=== PATIENT | female | born 1950 | race African-American/Black ===

== ENCOUNTER 2017-04-14 14:01 | Inpatient (IN) ==
[2017-04-14 16:09] LABS: Basophils # 0.1 10*3/uL (0.0-0.2); Basophils % 0.5 % (0.0-0.8); Eosinophils # 0.4 10*3/uL (0.0-0.87); Eosinophils % 3.2 % (0.00-10.9); Hematocrit 37.3 VOL% (35.7-47.0); Hemoglobin 12.3 GM/DL (12.0-16.0); Immature Granulocytes % 0.6 %; Immature Granulocytes Absolute 0.07 #; Lymphocytes # 1.7 10*3/uL (1.4-4.0); Lymphocytes % 13.1 % (21.3-54.2); Mean Corpuscular Hemoglobin 29 PG (27-34); Mean Corpuscular Volume 87.6 FL (87-102); Mean Platelet Volume 11.8 FL (9.6-12.0); Monocytes # 0.9 10*3/uL (0.11-0.8); Monocytes % 7.2 % (1.7-12.7); Neutrophils # 9.6 10*3/uL (1.4-7.4); Neutrophils % 75.4 % (38.7-73.9); Platelet Count 243 T/CUMM (130-400); Red Blood Count 4.26 MC/CUMM (3.8-5.5); Red Cell Distribution Width 16.7 % (9.3-17.3); White Blood Count 12.7 T/CUMM (4-12)
[2017-04-14 16:34] LABS: Alanine Aminotransferase 40 U/L (13-56); Alkaline Phosphatase 208 U/L (45-117); Aspartate Amino Transferase 43 U/L (0-37); Bilirubin,Total < 0.39 MG/DL (0.2-1.0); Blood Urea Nitrogen 22 MG/DL (7-18); Calcium 8.9 MG/DL (8.5-10.1); Glucose 151 MG/DL (74-106); Magnesium 2.1 MG/DL (1.8-2.4); Osmolality,Calculated 288.1 MOS/KG (273-304); Potassium 3.1 MMOL/L (3.5-5.1); Sodium 142 MMOL/L (136-145); Total Protein 7.2 G/DL (6.4-8.3)
[2017-04-14] MEDS ORDERED: NITROGLYCERIN SL 0.4 MG TABLET SL PRN (19:58)
[2017-04-14] MEDS ORDERED: ONDANSETRON 4 MG/2 ML VIAL IV PRN (19:58)
[2017-04-14] MEDS ORDERED: ACETAMINOPHEN 325 MG TABLET PO PRN (19:58)
[2017-04-14 20:12] LABS: Hematocrit 33.7 VOL% (35.7-47.0); Hemoglobin 11.1 GM/DL (12.0-16.0)
[2017-04-14] MEDS: risperiDONE 1 MG TABLET PO SCH (20:34)
[2017-04-14] MEDS: ASCORBIC ACID 500 MG TABLET PO SCH (20:34)
[2017-04-14] MEDS: DONEPEZIL 5 MG TABLET PO SCH (20:34)
[2017-04-15 05:59] LABS: Basophils # 0.1 10*3/uL (0.0-0.2); Basophils % 0.4 % (0.0-0.8); Eosinophils # 0.4 10*3/uL (0.0-0.87); Eosinophils % 3.7 % (0.00-10.9); Hematocrit 34.1 VOL% (35.7-47.0); Immature Granulocytes % 0.5 %; Immature Granulocytes Absolute 0.06 #; Lymphocytes # 1.9 10*3/uL (1.4-4.0); Lymphocytes % 16.5 % (21.3-54.2); Mean Corpuscular HGB Conc 32.3 GM/DL (32-36); Mean Corpuscular Hemoglobin 29 PG (27-34); Mean Corpuscular Volume 88.3 FL (87-102); Mean Platelet Volume 10.2 FL (9.6-12.0); Monocytes % 8.5 % (1.7-12.7); Neutrophils # 8.3 10*3/uL (1.4-7.4); Neutrophils % 70.4 % (38.7-73.9); Platelet Count 223 T/CUMM (130-400); Red Blood Count 3.86 MC/CUMM (3.8-5.5); Red Cell Distribution Width 16.7 % (9.3-17.3); White Blood Count 11.8 T/CUMM (4-12)
[2017-04-15 06:33] LABS: Albumin 2.8 G/DL (3.4-5.0); Bilirubin,Total 0.7 MG/DL (0.2-1.0); Calcium 8.9 MG/DL (8.5-10.1); Osmolality,Calculated 288.1 MOS/KG (273-304); Potassium 3.1 MMOL/L (3.5-5.1); Total Protein 6.6 G/DL (6.4-8.3)
[2017-04-15] MEDS ORDERED: PANTOPRAZOLE 40 MG VIAL IV SCH (09:00)
[2017-04-15] MEDS: ASCORBIC ACID 500 MG TABLET PO SCH ×2 (10:05→20:59)
[2017-04-15] MEDS: MULTIVITAMIN (BEROCCA) TABLET PO SCH (10:05)
[2017-04-15] MEDS: risperiDONE 1 MG TABLET PO SCH ×2 (10:05→20:57)
[2017-04-15] MEDS: PANTOPRAZOLE 40 MG TABLET PO SCH (10:05)
[2017-04-15] MEDS ORDERED: POTASSIUM CHLORIDE 20 MEQ TABLET PO ONE (11:30)
[2017-04-15 12:04] LABS: Hematocrit 36.4 VOL% (35.7-47.0); Hemoglobin 11.9 GM/DL (12.0-16.0)
[2017-04-15] MEDS ORDERED: HEPARIN 10,000 UNIT/10 ML VIAL IV SCH (15:00)
[2017-04-15] MEDS: ISOSORBIDE MONONITRATE 30 MG TABLET PO SCH (20:59)
[2017-04-15] MEDS: DONEPEZIL 5 MG TABLET PO SCH (20:59)
[2017-04-16 05:48] LABS: Basophils % 0.3 % (0.0-0.8); Eosinophils # 0.4 10*3/uL (0.0-0.87); Eosinophils % 2.9 % (0.00-10.9); Hematocrit 31.7 VOL% (35.7-47.0); Hemoglobin 10.2 GM/DL (12.0-16.0); Immature Granulocytes % 0.7 %; Immature Granulocytes Absolute 0.08 #; Lymphocytes # 1.6 10*3/uL (1.4-4.0); Lymphocytes % 12.6 % (21.3-54.2); Mean Corpuscular HGB Conc 32.2 GM/DL (32-36); Mean Corpuscular Hemoglobin 28 PG (27-34); Mean Corpuscular Volume 88.1 FL (87-102); Mean Platelet Volume 10.5 FL (9.6-12.0); Monocytes # 1.2 10*3/uL (0.11-0.8); Monocytes % 9.8 % (1.7-12.7); Neutrophils % 73.7 % (38.7-73.9); Platelet Count 202 T/CUMM (130-400); Red Cell Distribution Width 16.8 % (9.3-17.3); White Blood Count 12.3 T/CUMM (4-12)
[2017-04-16 06:16] LABS: Calcium 8.5 MG/DL (8.5-10.1); Osmolality,Calculated 283.4 MOS/KG (273-304); Potassium 3.6 MMOL/L (3.5-5.1)
[2017-04-16] MEDS ORDERED: ETOMIDATE 20 MG/10 ML VIAL IV ONE (12:00)
[2017-04-16] MEDS ORDERED: PROPOFOL 200 MG/20 ML VIAL IV ONE (12:00)
[2017-04-16] MEDS: risperiDONE 1 MG TABLET PO SCH ×2 (12:47→20:53)
[2017-04-16] MEDS: ASCORBIC ACID 500 MG TABLET PO SCH ×2 (12:47→20:53)
[2017-04-16] MEDS: MULTIVITAMIN (BEROCCA) TABLET PO SCH (12:47)
[2017-04-16] MEDS: PANTOPRAZOLE 40 MG TABLET PO SCH (12:47)
[2017-04-16] MEDS: ZINC OXIDE PASTE 113 GM TUBE TOP SCH ×2 (17:01→21:45)
[2017-04-16] MEDS: ISOSORBIDE MONONITRATE 30 MG TABLET PO SCH (20:53)
[2017-04-16] MEDS: DONEPEZIL 5 MG TABLET PO SCH (20:53)
[2017-04-17] MEDS: ASCORBIC ACID 500 MG TABLET PO SCH (08:17)
[2017-04-17] MEDS: risperiDONE 1 MG TABLET PO SCH (08:17)
[2017-04-17] MEDS: ZINC OXIDE PASTE 113 GM TUBE TOP SCH (08:17)
[2017-04-17] MEDS: MULTIVITAMIN (BEROCCA) TABLET PO SCH (08:17)
[2017-04-17] MEDS: PANTOPRAZOLE 40 MG TABLET PO SCH (08:17)
[2017-04-17 12:23] VITALS: BP 124/67
[2017-04-17 13:26] LABS: Basophils % 0.4 % (0.0-0.8); Eosinophils # 0.5 10*3/uL (0.0-0.87); Eosinophils % 4.6 % (0.00-10.9); Hematocrit 32.1 VOL% (35.7-47.0); Hemoglobin 10.5 GM/DL (12.0-16.0); Immature Granulocytes % 0.6 %; Immature Granulocytes Absolute 0.06 #; Lymphocytes # 1.8 10*3/uL (1.4-4.0); Lymphocytes % 17.3 % (21.3-54.2); Mean Corpuscular HGB Conc 32.7 GM/DL (32-36); Mean Corpuscular Hemoglobin 29 PG (27-34); Mean Corpuscular Volume 87.9 FL (87-102); Mean Platelet Volume 10.5 FL (9.6-12.0); Monocytes # 0.9 10*3/uL (0.11-0.8); Monocytes % 8.4 % (1.7-12.7); Neutrophils # 6.9 10*3/uL (1.4-7.4); Neutrophils % 68.7 % (38.7-73.9); Platelet Count 196 T/CUMM (130-400); Red Blood Count 3.65 MC/CUMM (3.8-5.5); Red Cell Distribution Width 16.4 % (9.3-17.3); White Blood Count 10.1 T/CUMM (4-12)
[2017-04-17 13:52] LABS: Calcium 8.1 MG/DL (8.5-10.1); Osmolality,Calculated 269.1 MOS/KG (273-304); Potassium 3.2 MMOL/L (3.5-5.1)
== END 2017-04-17 15:37 | disposition home health service (06) | DRG 380 ==
LOC: EDUNIT# → EDBD → N.ED 14:01 → SUATTDRO 16:56 → N.EDINP 16:56 → N.2E 19:05
PROVIDERS: ADMIT Internal Medicine; ATTEND Hospitalist

== ENCOUNTER 2018-04-12 10:00 | Inpatient (IN) ==
[2018-04-12] MEDS ORDERED: SODIUM CHLORIDE 0.9% 500 ML IV STA (10:22)
[2018-04-12] MEDS ORDERED: GENTAMICIN INJ 80 MG in SODIUM CHLORIDE 0.9% 100 ML IV STA (10:22)
[2018-04-12] MEDS ORDERED: VANCOMYCIN INJ 1,000 MG in SODIUM CHLORIDE 0.9% 250 ML IV STA (10:22)
[2018-04-12] MEDS ORDERED: PROTAMINE SULFATE 50 MG/5 ML VIAL IV ONE (10:44)
[2018-04-12] MEDS ORDERED: NOREPINEPHRINE 4 MG/4 ML VIAL IV ONE (10:45)
[2018-04-12] MEDS ORDERED: SODIUM CHLORIDE 0.9% 1,000 ML IV PRN ×3 (10:49→14:56)
[2018-04-12] MEDS: NOREPINEPHRINE 8 MG in SODIUM CHLORIDE 0.9% 242 ML IV PRN ×3 (10:50→20:42)
[2018-04-12] MEDS ORDERED: GENTAMICIN 80 MG/2 ML VIAL ONE (11:08)
[2018-04-12] MEDS ORDERED: ACETAMINOPHEN 325 MG TABLET PO PRN (11:34)
[2018-04-12] MEDS ORDERED: ONDANSETRON 4 MG/2 ML VIAL IV PRN (11:34)
[2018-04-12] MEDS ORDERED: ALBUTEROL 2.5 MG/3 ML NEB RESP TX PRN (11:34)
[2018-04-12] MEDS ORDERED: LACTULOSE 20 GM/30 ML UDCUP PO PRN (11:34)
[2018-04-12] MEDS ORDERED: GLUCAGON 1 MG VIAL IM PRN (11:41)
[2018-04-12] MEDS ORDERED: DEXTROSE 50% 25 GM/50 ML VIAL IV PRN (11:41)
[2018-04-12 11:58] LABS: Basophils % 0.2 % (0.0-0.8); Eosinophils % 0.1 % (0.00-10.9); Hematocrit 20.4 VOL% (35.7-47.0); Immature Granulocytes % 1.5 %; Immature Granulocytes Absolute 0.27 #; Lymphocytes # 1.9 10*3/uL (1.4-4.0); Mean Corpuscular HGB Conc 30.4 GM/DL (32-36); Mean Corpuscular Hemoglobin 25 PG (27-34); Mean Corpuscular Volume 83.3 FL (87-102); Mean Platelet Volume 11.5 FL (9.6-12.0); Monocytes # 1.2 10*3/uL (0.11-0.8); Monocytes % 6.7 % (1.7-12.7); Neutrophils # 15.1 10*3/uL (1.4-7.4); Neutrophils % 81.5 % (38.7-73.9); Platelet Count 186 T/CUMM (130-400); Red Blood Count 2.45 MC/CUMM (3.8-5.5); Red Cell Distribution Width 18.7 % (9.3-17.3); White Blood Count 18.5 T/CUMM (4-12)
[2018-04-12 12:03] LABS: Hemoglobin 6.2 GM/DL (12.0-16.0)
[2018-04-12 12:06] LABS: INR 1.2; PT Patient Result 12.8 SECS; Partial Thromboplastin Time 27.4 SECS (0-40)
[2018-04-12 12:18] LABS: Ammonia 29 UMOL/L (11-32)
[2018-04-12 12:21] LABS: Lactic Acid 6.4 MMOL/L (0.4-2.0)
[2018-04-12 12:33] LABS: Alanine Aminotransferase 10 U/L (13-56); Albumin 1.8 G/DL (3.4-5.0); Alkaline Phosphatase 56 U/L (45-117); Aspartate Amino Transferase 17 U/L (0-37); Blood Urea Nitrogen 68 MG/DL (7-18); Glucose 223 MG/DL (74-106); Potassium 4.1 MMOL/L (3.5-5.1); Sodium 143 MMOL/L (136-145); Total Protein 5.1 G/DL (6.4-8.3)
[2018-04-12 12:37] LABS: Allen Test Positive; Pt O2 Delivery Device Ventilator
[2018-04-12 12:38] LABS: ABG Base Excess 0.3 MMOL/L (-2.5-2.5); ABG HCO3 24.7 MMOL/L (20-26); ABG TCO2 20.9 MMOL/L (23-27)
[2018-04-12 12:40] LABS: ABG PCO2 20.4 MM HG (35-48); ABG PH 7.629 (7.35-7.45)
[2018-04-12] MEDS ORDERED: INSULIN LISPRO 100 UNIT/ML SUBCUT SCH (14:00)
[2018-04-12] MEDS ORDERED: ETOMIDATE 20 MG/10 ML VIAL IV ONE (14:12)
[2018-04-12] MEDS ORDERED: ROCURONIUM 100 MG/10 ML VIAL IV ONE (14:12)
[2018-04-12] MEDS ORDERED: PHENYLEPHRINE INJ 160 MG in SODIUM CHLORIDE 0.9% 234 ML IV PRN (14:30)
[2018-04-12] MEDS: PROPOFOL 1,000 MG/100 ML BOTTLE IV SCH ×2 (16:33→20:10)
[2018-04-12] MEDS: SODIUM CHLORIDE 0.9% 1,000 ML IV SCH ×2 (16:34→20:00)
[2018-04-12] MEDS ORDERED: ALBUMIN 25% 25 GM in PREMIX 1 EACH IV ONE (16:45)
[2018-04-12] MEDS: PANTOPRAZOLE 40 MG VIAL IV SCH (16:45)
[2018-04-12] MEDS ORDERED: VANCOMYCIN INJ 500 MG in SODIUM CHLORIDE 0.9% 100 ML IV PRN (17:27)
[2018-04-12] MEDS ORDERED: GENTAMICIN INJ 120 MG in PREMIX 1 EACH IV PRN (17:27)
[2018-04-12] MEDS ORDERED: VANCOMYCIN INJ 500 MG in SODIUM CHLORIDE 0.9% 100 ML IV ONE (20:00)
[2018-04-12] MEDS ORDERED: GENTAMICIN INJ 80 MG in PREMIX 1 EACH IV ONE (21:00)
[2018-04-12 21:01] LABS: Lymphocytes 6 % (20-55); Segmented Neutrophils 91 % (50-85); Total Cells Counted 100
[2018-04-12 21:02] LABS: Platelet Estimate Normal
[2018-04-12] MEDS: MIDODRINE 5 MG TABLET PO SCH (21:49)
[2018-04-12] MEDS: DONEPEZIL 5 MG TABLET PO SCH (21:50)
[2018-04-12] MEDS: risperiDONE 1 MG TABLET PO SCH (21:50)
[2018-04-13] MEDS: NOREPINEPHRINE 8 MG in SODIUM CHLORIDE 0.9% 242 ML IV PRN ×6 (00:35→23:27)
[2018-04-13] MEDS: PANTOPRAZOLE 40 MG VIAL IV SCH ×2 (00:50→13:59)
[2018-04-13] MEDS: PROPOFOL 1,000 MG/100 ML BOTTLE IV SCH ×4 (02:00→18:58)
[2018-04-13] MEDS ORDERED: PHENTOLAMINE 5 MG VIAL INFILTRAT ONE (02:07)
[2018-04-13] MEDS ORDERED: MORPHINE 4 MG/1 ML VIAL ONE (02:16)
[2018-04-13 03:38] LABS: Allen Test Positive; Pt O2 Delivery Device Ventilator
[2018-04-13 03:39] LABS: ABG Base Excess 0.2 MMOL/L (-2.5-2.5); ABG Oxygen Saturation 99.1 % (95-100); ABG TCO2 21.6 MMOL/L (23-27)
[2018-04-13 03:40] LABS: ABG PCO2 20.8 MM HG (35-48); ABG PH 7.621 (7.35-7.45)
[2018-04-13 05:09] LABS: Basophils % 0.2 % (0.0-0.8); Hematocrit 21.3 VOL% (35.7-47.0); Hemoglobin 6.9 GM/DL (12.0-16.0); Immature Granulocytes % 0.9 %; Immature Granulocytes Absolute 0.19 #; Lymphocytes # 1.6 10*3/uL (1.4-4.0); Lymphocytes % 7.4 % (21.3-54.2); Mean Corpuscular HGB Conc 32.4 GM/DL (32-36); Mean Corpuscular Hemoglobin 25 PG (27-34); Mean Platelet Volume 11.4 FL (9.6-12.0); Monocytes # 1.6 10*3/uL (0.11-0.8); Monocytes % 7.5 % (1.7-12.7); Neutrophils # 17.5 10*3/uL (1.4-7.4); Platelet Count 143 T/CUMM (130-400); Red Blood Count 2.73 MC/CUMM (3.8-5.5); Red Cell Distribution Width 16.4 % (9.3-17.3); White Blood Count 20.9 T/CUMM (4-12)
[2018-04-13 05:15] LABS: Hematocrit 21.1 VOL% (35.7-47.0)
[2018-04-13 05:30] LABS: Albumin 2.6 G/DL (3.4-5.0); Bilirubin,Total 0.9 MG/DL (0.2-1.0); Calcium 7.6 MG/DL (8.5-10.1); Potassium 3.7 MMOL/L (3.5-5.1); Total Protein 5.5 G/DL (6.4-8.3)
[2018-04-13 05:32] LABS: INR 1.1; PT Patient Result 11.5 SECS
[2018-04-13] MEDS ORDERED: SODIUM CHLORIDE 0.9% 1,000 ML IV PRN (05:45)
[2018-04-13 05:47] LABS: Band Neutrophils 2 % (0-10); Hypochromasia 1+; Lymphocytes 3 % (20-55); Ovalocytes Slight; Platelet Estimate Adequate; Segmented Neutrophils 90 % (50-85); Total Cells Counted 100
[2018-04-13] MEDS: INSULIN REGULAR 100 UNIT/ML SUBCUT SCH ×3 (06:25→17:00)
[2018-04-13] MEDS ORDERED: ETOMIDATE 40 MG/20 ML VIAL IV ONE (08:50)
[2018-04-13] MEDS ORDERED: PHENYLEPHRINE 10 MG/1 ML VIAL IV ONE (08:51)
[2018-04-13] MEDS: ESCITALOPRAM 10 MG TABLET PO SCH (09:12)
[2018-04-13] MEDS: risperiDONE 1 MG TABLET PO SCH ×2 (09:12→21:36)
[2018-04-13] MEDS: MIDODRINE 5 MG TABLET PO SCH ×2 (09:12→21:36)
[2018-04-13] MEDS: ATORVASTATIN 40 MG TABLET PO SCH (09:12)
[2018-04-13] MEDS: HYDROCORTISONE 100 MG VIAL IV SCH ×2 (09:43→17:00)
[2018-04-13] MEDS ORDERED: SODIUM CHLORIDE 0.9% 1,000 ML IV ONE (10:24)
[2018-04-13] MEDS ORDERED: HEPARIN 10,000 UNIT/10 ML VIAL IV SCH (17:30)
[2018-04-13] MEDS ORDERED: GENTAMICIN INJ 120 MG in PREMIX 1 EACH IV ONE (20:00)
[2018-04-13] MEDS ORDERED: VANCOMYCIN INJ 500 MG in SODIUM CHLORIDE 0.9% 100 ML IV ONE (20:30)
[2018-04-13 20:32] LABS: Hematocrit 31.9 VOL% (35.7-47.0)
[2018-04-13] MEDS: SODIUM CHLORIDE 0.9% 1,000 ML IV SCH (21:36)
[2018-04-13] MEDS: DONEPEZIL 5 MG TABLET PO SCH (21:36)
[2018-04-14] MEDS: PANTOPRAZOLE 40 MG VIAL IV SCH ×2 (00:08→12:47)
[2018-04-14] MEDS: HYDROCORTISONE 100 MG VIAL IV SCH ×3 (00:11→16:19)
[2018-04-14] MEDS: INSULIN REGULAR 100 UNIT/ML SUBCUT SCH ×4 (00:11→17:29)
[2018-04-14] MEDS: PROPOFOL 1,000 MG/100 ML BOTTLE IV SCH ×4 (02:08→16:18)
[2018-04-14] MEDS: NOREPINEPHRINE 8 MG in SODIUM CHLORIDE 0.9% 242 ML IV PRN ×2 (02:48→05:58)
[2018-04-14 04:38] LABS: ABG Base Excess -7.8 MMOL/L (-2.5-2.5); ABG HCO3 18.1 MMOL/L (20-26); ABG Oxygen Saturation 99.8 % (95-100); ABG PCO2 22.1 MM HG (35-48); ABG PH 7.437 (7.35-7.45); ABG TCO2 13.4 MMOL/L (23-27)
[2018-04-14 05:29] LABS: Basophils % 0.2 % (0.0-0.8); Hematocrit 30.2 VOL% (35.7-47.0); Hemoglobin 10.3 GM/DL (12.0-16.0); Immature Granulocytes % 1.2 %; Immature Granulocytes Absolute 0.31 #; Lymphocytes # 1.4 10*3/uL (1.4-4.0); Lymphocytes % 5.4 % (21.3-54.2); Mean Corpuscular HGB Conc 34.1 GM/DL (32-36); Mean Corpuscular Hemoglobin 28 PG (27-34); Mean Corpuscular Volume 81.2 FL (87-102); Mean Platelet Volume 11.3 FL (9.6-12.0); Monocytes # 1.7 10*3/uL (0.11-0.8); Monocytes % 6.8 % (1.7-12.7); NRBC # 0.05 10*3/uL; Neutrophils % 86.4 % (38.7-73.9); Platelet Count 124 T/CUMM (130-400); Red Blood Count 3.72 MC/CUMM (3.8-5.5); Red Cell Distribution Width 16.9 % (9.3-17.3); White Blood Count 25.4 T/CUMM (4-12)
[2018-04-14 05:31] LABS: PT Patient Result 10.7 SECS
[2018-04-14 05:44] LABS: Osmolality,Calculated 295.5 MOS/KG (273-304); Potassium 3.5 MMOL/L (3.5-5.1)
[2018-04-14 05:47] LABS: Albumin 2.4 G/DL (3.4-5.0); Bilirubin,Total 0.6 MG/DL (0.2-1.0); Calcium 7.5 MG/DL (8.5-10.1); Osmolality,Calculated 295.5 MOS/KG (273-304); Potassium 3.5 MMOL/L (3.5-5.1); Total Protein 5.8 G/DL (6.4-8.3)
[2018-04-14 06:05] LABS: Band Neutrophils 2 % (0-10); Lymphocytes 6 % (20-55); Segmented Neutrophils 87 % (50-85); Total Cells Counted 100
[2018-04-14 06:06] LABS: Platelet Estimate Decreased
[2018-04-14] MEDS: risperiDONE 1 MG TABLET PO SCH ×2 (08:22→20:00)
[2018-04-14] MEDS: MIDODRINE 5 MG TABLET PO SCH ×2 (08:22→20:00)
[2018-04-14] MEDS: ESCITALOPRAM 10 MG TABLET PO SCH (08:22)
[2018-04-14] MEDS: ATORVASTATIN 40 MG TABLET PO SCH (08:22)
[2018-04-14] MEDS: SODIUM BICARB INJ 150 MEQ in STERILE WATER INJ 850 ML IV SCH ×2 (09:57→19:59)
[2018-04-14] MEDS: DONEPEZIL 5 MG TABLET PO SCH (20:00)
[2018-04-15] MEDS: HYDROCORTISONE 100 MG VIAL IV SCH ×3 (00:40→18:02)
[2018-04-15] MEDS: PANTOPRAZOLE 40 MG VIAL IV SCH ×2 (00:43→12:59)
[2018-04-15] MEDS: INSULIN REGULAR 100 UNIT/ML SUBCUT SCH ×4 (00:44→18:01)
[2018-04-15] MEDS: NOREPINEPHRINE 16 MG in SODIUM CHLORIDE 0.9% 234 ML IV PRN ×2 (00:53→15:18)
[2018-04-15] MEDS: SODIUM BICARB INJ 150 MEQ in STERILE WATER INJ 850 ML IV SCH ×2 (05:54→16:13)
[2018-04-15] MEDS: ESCITALOPRAM 10 MG TABLET PO SCH (08:48)
[2018-04-15] MEDS: MIDODRINE 5 MG TABLET PO SCH ×2 (08:48→21:44)
[2018-04-15] MEDS: ATORVASTATIN 40 MG TABLET PO SCH (08:48)
[2018-04-15] MEDS: risperiDONE 1 MG TABLET PO SCH ×2 (08:48→21:44)
[2018-04-15 10:12] LABS: Basophils % 0.1 % (0.0-0.8); Hematocrit 25.4 VOL% (35.7-47.0); Hemoglobin 8.8 GM/DL (12.0-16.0); Immature Granulocytes % 0.5 %; Immature Granulocytes Absolute 0.07 #; Lymphocytes # 0.7 10*3/uL (1.4-4.0); Lymphocytes % 5.1 % (21.3-54.2); Mean Corpuscular HGB Conc 34.6 GM/DL (32-36); Mean Corpuscular Hemoglobin 28 PG (27-34); Mean Corpuscular Volume 80.4 FL (87-102); Mean Platelet Volume 11.9 FL (9.6-12.0); Monocytes # 0.6 10*3/uL (0.11-0.8); Monocytes % 4.5 % (1.7-12.7); NRBC # 0.04 10*3/uL; Neutrophils # 11.8 10*3/uL (1.4-7.4); Neutrophils % 89.8 % (38.7-73.9); Red Blood Count 3.16 MC/CUMM (3.8-5.5); Red Cell Distribution Width 17.2 % (9.3-17.3); White Blood Count 13.2 T/CUMM (4-12)
[2018-04-15 10:13] LABS: Platelet Count 94 T/CUMM (130-400)
[2018-04-15 10:17] LABS: PT Patient Result 10.9 SECS
[2018-04-15 10:30] LABS: Albumin 1.9 G/DL (3.4-5.0); Bilirubin,Total 0.4 MG/DL (0.2-1.0); Calcium 6.6 MG/DL (8.5-10.1); Osmolality,Calculated 293.3 MOS/KG (273-304); Total Protein 4.7 G/DL (6.4-8.3)
[2018-04-15 10:32] LABS: Potassium 2.5 MMOL/L (3.5-5.1)
[2018-04-15 10:47] LABS: Prealbumin 9.8 MG/DL (20-40)
[2018-04-15] MEDS: POTASSIUM CHLORIDE RIDER 20 MEQ in PREMIX 1 EACH IV SCH ×3 (12:22→16:27)
[2018-04-15] MEDS: PROPOFOL 1,000 MG/100 ML BOTTLE IV SCH (13:00)
[2018-04-15] MEDS ORDERED: VANCOMYCIN INJ 750 MG in SODIUM CHLORIDE 0.9% 250 ML IV PRN (14:00)
[2018-04-15] MEDS ORDERED: VANCOMYCIN INJ 750 MG in SODIUM CHLORIDE 0.9% 250 ML IV ONE (14:30)
[2018-04-15] MEDS ORDERED: ceFAZolin 1,000 MG in SYRINGE 1 EACH IV ONE (15:00)
[2018-04-15] MEDS ORDERED: GENTAMICIN INJ 120 MG in PREMIX 1 EACH IV ONE (16:00)
[2018-04-15] MEDS: DONEPEZIL 5 MG TABLET PO SCH (21:44)
[2018-04-16] MEDS: HYDROCORTISONE 100 MG VIAL IV SCH ×3 (00:48→15:24)
[2018-04-16] MEDS: PANTOPRAZOLE 40 MG VIAL IV SCH ×2 (00:54→12:11)
[2018-04-16] MEDS: INSULIN REGULAR 100 UNIT/ML SUBCUT SCH ×4 (00:55→17:21)
[2018-04-16] MEDS ORDERED: DEXTROSE 50% 25 GM/50 ML SYRINGE IV PRN (03:00)
[2018-04-16] MEDS: SODIUM BICARB INJ 150 MEQ in STERILE WATER INJ 850 ML IV SCH ×3 (03:45→13:25)
[2018-04-16 04:21] LABS: Basophils % 0.1 % (0.0-0.8); Eosinophils % 0.1 % (0.00-10.9); Hematocrit 28.2 VOL% (35.7-47.0); Hemoglobin 9.6 GM/DL (12.0-16.0); Immature Granulocytes % 0.9 %; Immature Granulocytes Absolute 0.14 #; Lymphocytes # 0.7 10*3/uL (1.4-4.0); Lymphocytes % 4.3 % (21.3-54.2); Mean Corpuscular Hemoglobin 27 PG (27-34); Mean Corpuscular Volume 80.6 FL (87-102); Mean Platelet Volume 11.7 FL (9.6-12.0); Monocytes # 1.4 10*3/uL (0.11-0.8); Monocytes % 8.4 % (1.7-12.7); Neutrophils % 86.2 % (38.7-73.9); Platelet Count 107 T/CUMM (130-400); Red Cell Distribution Width 17.4 % (9.3-17.3); White Blood Count 16.2 T/CUMM (4-12)
[2018-04-16 04:33] LABS: INR 1.1; PT Patient Result 11.4 SECS
[2018-04-16 04:41] LABS: Bilirubin,Total 0.4 MG/DL (0.2-1.0); Calcium 6.7 MG/DL (8.5-10.1); Osmolality,Calculated 290.4 MOS/KG (273-304); Potassium 3.5 MMOL/L (3.5-5.1)
[2018-04-16 05:09] LABS: Lymphocytes 8 % (20-55); Metamyelocytes 2 %; Myelocytes 1 %; Segmented Neutrophils 84 % (50-85)
[2018-04-16 05:10] LABS: Hypochromasia 1+; Ovalocytes 1+; Platelet Estimate Decreased; Target Cells Few
[2018-04-16 05:11] LABS: Total Cells Counted 100
[2018-04-16] MEDS: MIDODRINE 5 MG TABLET PO SCH ×2 (08:08→20:34)
[2018-04-16] MEDS: risperiDONE 1 MG TABLET PO SCH ×2 (08:10→20:34)
[2018-04-16] MEDS: ATORVASTATIN 40 MG TABLET PO SCH (08:10)
[2018-04-16] MEDS: ESCITALOPRAM 10 MG TABLET PO SCH (08:10)
[2018-04-16] MEDS: NOREPINEPHRINE 16 MG in SODIUM CHLORIDE 0.9% 234 ML IV PRN (09:35)
[2018-04-16] MEDS: PROPOFOL 1,000 MG/100 ML BOTTLE IV SCH (11:15)
[2018-04-16] MEDS: DONEPEZIL 5 MG TABLET PO SCH (20:34)
[2018-04-17] MEDS: SODIUM BICARB INJ 150 MEQ in STERILE WATER INJ 850 ML IV SCH ×5 (00:04→20:17)
[2018-04-17] MEDS: PANTOPRAZOLE 40 MG VIAL IV SCH ×2 (00:29→12:45)
[2018-04-17] MEDS: HYDROCORTISONE 100 MG VIAL IV SCH ×3 (00:32→15:31)
[2018-04-17] MEDS: INSULIN REGULAR 100 UNIT/ML SUBCUT SCH ×4 (00:33→17:38)
[2018-04-17] MEDS: NOREPINEPHRINE 16 MG in SODIUM CHLORIDE 0.9% 234 ML IV PRN (02:26)
[2018-04-17] MEDS: risperiDONE 1 MG TABLET PO SCH ×2 (08:33→20:10)
[2018-04-17] MEDS: MIDODRINE 5 MG TABLET PO SCH ×2 (08:33→20:10)
[2018-04-17] MEDS: ESCITALOPRAM 10 MG TABLET PO SCH (08:33)
[2018-04-17] MEDS: ATORVASTATIN 40 MG TABLET PO SCH (08:33)
[2018-04-17] MEDS: PROPOFOL 1,000 MG/100 ML BOTTLE IV SCH (12:34)
[2018-04-17] MEDS: DONEPEZIL 5 MG TABLET PO SCH (20:10)
[2018-04-18] MEDS: PANTOPRAZOLE 40 MG VIAL IV SCH ×2 (00:05→15:25)
[2018-04-18] MEDS: HYDROCORTISONE 100 MG VIAL IV SCH ×3 (00:08→15:26)
[2018-04-18] MEDS: INSULIN REGULAR 100 UNIT/ML SUBCUT SCH ×4 (00:10→18:10)
[2018-04-18 03:48] LABS: Basophils % 0.1 % (0.0-0.8); Eosinophils % 0.1 % (0.00-10.9); Hematocrit 27.8 VOL% (35.7-47.0); Hemoglobin 9.5 GM/DL (12.0-16.0); Immature Granulocytes Absolute 0.13 #; Lymphocytes # 0.7 10*3/uL (1.4-4.0); Lymphocytes % 5.3 % (21.3-54.2); Mean Corpuscular HGB Conc 34.2 GM/DL (32-36); Mean Corpuscular Hemoglobin 28 PG (27-34); Mean Corpuscular Volume 81.5 FL (87-102); Mean Platelet Volume 11.1 FL (9.6-12.0); Monocytes # 1.1 10*3/uL (0.11-0.8); Monocytes % 8.1 % (1.7-12.7); Neutrophils # 11.4 10*3/uL (1.4-7.4); Neutrophils % 85.4 % (38.7-73.9); Platelet Count 134 T/CUMM (130-400); Red Blood Count 3.41 MC/CUMM (3.8-5.5); Red Cell Distribution Width 18.1 % (9.3-17.3); White Blood Count 13.3 T/CUMM (4-12)
[2018-04-18 04:02] LABS: Calcium 6.2 MG/DL (8.5-10.1); Osmolality,Calculated 289.8 MOS/KG (273-304); Potassium 3.5 MMOL/L (3.5-5.1)
[2018-04-18 04:16] LABS: Prealbumin 10.7 MG/DL (20-40)
[2018-04-18] MEDS: SODIUM BICARB INJ 150 MEQ in STERILE WATER INJ 850 ML IV SCH (04:44)
[2018-04-18] MEDS ORDERED: MORPHINE 4 MG/1 ML VIAL IV PRN (08:21)
[2018-04-18] MEDS ORDERED: ERGOCALCIFEROL 50,000 UNIT CAPSULE PO SCH (09:00)
[2018-04-18] MEDS: ceFAZolin 1,000 MG in SYRINGE 1 EACH IV SCH (09:37)
[2018-04-18] MEDS: ATORVASTATIN 40 MG TABLET PO SCH (09:38)
[2018-04-18] MEDS: risperiDONE 1 MG TABLET PO SCH ×2 (09:38→21:35)
[2018-04-18] MEDS: ESCITALOPRAM 10 MG TABLET PO SCH (09:38)
[2018-04-18] MEDS: MIDODRINE 5 MG TABLET PO SCH ×2 (09:38→21:35)
[2018-04-18] MEDS ORDERED: GENTAMICIN INJ 100 MG in PREMIX 1 EACH IV PRN (13:30)
[2018-04-18] MEDS ORDERED: GENTAMICIN INJ 100 MG in PREMIX 1 EACH IV ONE (14:00)
[2018-04-18] MEDS: PROPOFOL 1,000 MG/100 ML BOTTLE IV SCH (15:22)
[2018-04-18] MEDS: NOREPINEPHRINE 16 MG in SODIUM CHLORIDE 0.9% 234 ML IV PRN (18:00)
[2018-04-18] MEDS: DONEPEZIL 5 MG TABLET PO SCH (21:35)
[2018-04-18 23:38] LABS: Alanine Aminotransferase 9 U/L (13-56); Albumin 1.5 G/DL (3.4-5.0); Alkaline Phosphatase 82 U/L (45-117); Aspartate Amino Transferase 44 U/L (0-37); Bilirubin,Total < 0.39 MG/DL (0.2-1.0); Blood Urea Nitrogen 26 MG/DL (7-18); Calcium 6.4 MG/DL (8.5-10.1); Glucose 150 MG/DL (74-106); Osmolality,Calculated 282.7 MOS/KG (273-304); Potassium 3.4 MMOL/L (3.5-5.1); Sodium 138 MMOL/L (136-145); Total Protein 4.5 G/DL (6.4-8.3)
[2018-04-19] MEDS: INSULIN REGULAR 100 UNIT/ML SUBCUT SCH ×5 (00:30→23:50)
[2018-04-19] MEDS: HYDROCORTISONE 100 MG VIAL IV SCH ×4 (00:34→23:49)
[2018-04-19] MEDS: PANTOPRAZOLE 40 MG VIAL IV SCH ×3 (00:34→23:50)
[2018-04-19] MEDS: PROPOFOL 1,000 MG/100 ML BOTTLE IV SCH ×3 (01:56→13:44)
[2018-04-19 04:12] LABS: ABG Base Excess 13.9 MMOL/L (-2.5-2.5); ABG HCO3 37.7 MMOL/L (20-26); ABG Oxygen Saturation 98.6 % (95-100); ABG PCO2 34.8 MM HG (35-48); ABG PO2 90.5 MM HG (80-95); ABG TCO2 33.4 MMOL/L (23-27); Allen Test Positive; Pt O2 Delivery Device Ventilator
[2018-04-19 04:25] LABS: ABG PH 7.627 (7.35-7.45)
[2018-04-19 04:27] LABS: Basophils % 0.1 % (0.0-0.8); Eosinophils # 0.1 10*3/uL (0.0-0.87); Eosinophils % 0.4 % (0.00-10.9); Hematocrit 27.1 VOL% (35.7-47.0); Immature Granulocytes % 1.3 %; Lymphocytes # 0.8 10*3/uL (1.4-4.0); Lymphocytes % 5.3 % (21.3-54.2); Mean Corpuscular HGB Conc 33.2 GM/DL (32-36); Mean Corpuscular Hemoglobin 28 PG (27-34); Mean Corpuscular Volume 83.9 FL (87-102); Mean Platelet Volume 10.8 FL (9.6-12.0); Monocytes # 0.9 10*3/uL (0.11-0.8); Monocytes % 5.7 % (1.7-12.7); Neutrophils # 13.7 10*3/uL (1.4-7.4); Neutrophils % 87.2 % (38.7-73.9); Platelet Count 135 T/CUMM (130-400); Red Blood Count 3.23 MC/CUMM (3.8-5.5); Red Cell Distribution Width 18.6 % (9.3-17.3); White Blood Count 15.7 T/CUMM (4-12)
[2018-04-19] MEDS: MIDODRINE 5 MG TABLET PO SCH ×2 (09:18→21:29)
[2018-04-19] MEDS: ATORVASTATIN 40 MG TABLET PO SCH (09:18)
[2018-04-19] MEDS: ESCITALOPRAM 10 MG TABLET PO SCH (09:18)
[2018-04-19] MEDS: risperiDONE 1 MG TABLET PO SCH ×2 (09:18→21:29)
[2018-04-19 11:39] VITALS: BP 130/55
[2018-04-19] MEDS: NOREPINEPHRINE 16 MG in SODIUM CHLORIDE 0.9% 234 ML IV PRN (12:50)
[2018-04-19] MEDS: DONEPEZIL 5 MG TABLET PO SCH (21:30)
[2018-04-19] MEDS: SILVER SULFADIAZINE 1% CREAM 25 GM TUBE TOP SCH (21:32)
[2018-04-20] MEDS: PROPOFOL 1,000 MG/100 ML BOTTLE IV SCH ×2 (02:07→16:30)
[2018-04-20 04:51] LABS: ABG Base Excess 14.3 MMOL/L (-2.5-2.5); ABG HCO3 38.2 MMOL/L (20-26); ABG Oxygen Saturation 99.6 % (95-100); ABG PH 7.583 (7.35-7.45); ABG TCO2 34.7 MMOL/L (23-27)
[2018-04-20 05:06] LABS: Basophils % 0.1 % (0.0-0.8); Eosinophils # 0.1 10*3/uL (0.0-0.87); Eosinophils % 0.8 % (0.00-10.9); Hematocrit 26.3 VOL% (35.7-47.0); Hemoglobin 8.7 GM/DL (12.0-16.0); Immature Granulocytes % 0.9 %; Immature Granulocytes Absolute 0.14 #; Lymphocytes # 0.6 10*3/uL (1.4-4.0); Lymphocytes % 3.8 % (21.3-54.2); Mean Corpuscular HGB Conc 33.1 GM/DL (32-36); Mean Corpuscular Hemoglobin 28 PG (27-34); Mean Corpuscular Volume 84.3 FL (87-102); Mean Platelet Volume 11.5 FL (9.6-12.0); Monocytes # 0.8 10*3/uL (0.11-0.8); Monocytes % 5.1 % (1.7-12.7); Neutrophils # 13.4 10*3/uL (1.4-7.4); Neutrophils % 89.3 % (38.7-73.9); Platelet Count 173 T/CUMM (130-400); Red Blood Count 3.12 MC/CUMM (3.8-5.5); Red Cell Distribution Width 18.8 % (9.3-17.3)
[2018-04-20 05:30] LABS: Eosinophils 1 % (0-10); Hypochromasia Slight; Lymphocytes 8 % (20-55); Platelet Estimate Adequate; Segmented Neutrophils 91 % (50-85); Total Cells Counted 100
[2018-04-20] MEDS: INSULIN REGULAR 100 UNIT/ML SUBCUT SCH ×3 (06:34→17:38)
[2018-04-20] MEDS: ceFAZolin 1,000 MG in SYRINGE 1 EACH IV SCH (09:15)
[2018-04-20] MEDS: ESCITALOPRAM 10 MG TABLET PO SCH (09:15)
[2018-04-20] MEDS: HYDROCORTISONE 100 MG VIAL IV SCH ×2 (09:15→16:46)
[2018-04-20] MEDS: ATORVASTATIN 40 MG TABLET PO SCH (09:15)
[2018-04-20] MEDS: MIDODRINE 5 MG TABLET PO SCH ×2 (09:15→22:25)
[2018-04-20] MEDS: SILVER SULFADIAZINE 1% CREAM 25 GM TUBE TOP SCH ×2 (09:16→22:25)
[2018-04-20] MEDS: risperiDONE 1 MG TABLET PO SCH ×2 (09:16→22:25)
[2018-04-20] MEDS ORDERED: SODIUM PHOSPHATE IV ONE (11:00)
[2018-04-20] MEDS ORDERED: SODIUM CHLORIDE 0.9% IV ONE (11:00)
[2018-04-20] MEDS: PANTOPRAZOLE 40 MG VIAL IV SCH (13:35)
[2018-04-20] MEDS: NOREPINEPHRINE 16 MG in SODIUM CHLORIDE 0.9% 234 ML IV PRN (16:47)
[2018-04-20] MEDS ORDERED: GENTAMICIN INJ 100 MG in PREMIX 1 EACH IV ONE (21:00)
[2018-04-20] MEDS: DONEPEZIL 5 MG TABLET PO SCH (22:24)
[2018-04-21] MEDS: INSULIN REGULAR 100 UNIT/ML SUBCUT SCH ×3 (01:16→11:35)
[2018-04-21] MEDS: PANTOPRAZOLE 40 MG VIAL IV SCH ×2 (01:16→12:02)
[2018-04-21] MEDS: HYDROCORTISONE 100 MG VIAL IV SCH ×2 (01:16→09:02)
[2018-04-21 03:13] LABS: ABG HCO3 34.8 MMOL/L (20-26); ABG Oxygen Saturation 99.5 % (95-100); ABG PCO2 30.4 MM HG (35-48); ABG TCO2 30.7 MMOL/L (23-27); Allen Test Positive; Pt O2 Delivery Device Ventilator
[2018-04-21 03:18] LABS: ABG PH 7.639 (7.35-7.45)
[2018-04-21 06:33] LABS: Calcium 7.4 MG/DL (8.5-10.1); Osmolality,Calculated 278.8 MOS/KG (273-304); Potassium 4.3 MMOL/L (3.5-5.1)
[2018-04-21 06:38] LABS: Prealbumin 10.5 MG/DL (20-40)
[2018-04-21 07:18] LABS: Basophils % 0.1 % (0.0-0.8); Hematocrit 26.1 VOL% (35.7-47.0); Hemoglobin 8.8 GM/DL (12.0-16.0); Immature Granulocytes % 1.3 %; Immature Granulocytes Absolute 0.27 #; Lymphocytes # 0.7 10*3/uL (1.4-4.0); Lymphocytes % 3.4 % (21.3-54.2); Mean Corpuscular HGB Conc 33.7 GM/DL (32-36); Mean Corpuscular Hemoglobin 28 PG (27-34); Mean Corpuscular Volume 82.9 FL (87-102); Mean Platelet Volume 10.1 FL (9.6-12.0); Monocytes # 0.9 10*3/uL (0.11-0.8); Monocytes % 4.1 % (1.7-12.7); Neutrophils # 18.8 10*3/uL (1.4-7.4); Neutrophils % 91.1 % (38.7-73.9); Platelet Count 188 T/CUMM (130-400); Red Blood Count 3.15 MC/CUMM (3.8-5.5); Red Cell Distribution Width 19.2 % (9.3-17.3); White Blood Count 20.7 T/CUMM (4-12)
[2018-04-21 07:37] LABS: Band Neutrophils 1 % (0-10); Hypochromasia 1+; Lymphocytes 2 % (20-55); Ovalocytes Slight; Platelet Estimate Adequate; Segmented Neutrophils 93 % (50-85); Total Cells Counted 100
[2018-04-21] MEDS: ATORVASTATIN 40 MG TABLET PO SCH (09:02)
[2018-04-21] MEDS: ESCITALOPRAM 10 MG TABLET PO SCH (09:02)
[2018-04-21] MEDS: risperiDONE 1 MG TABLET PO SCH (09:02)
[2018-04-21] MEDS: SILVER SULFADIAZINE 1% CREAM 25 GM TUBE TOP SCH (09:03)
[2018-04-21] MEDS: MIDODRINE 5 MG TABLET PO SCH (09:03)
[2018-04-21] MEDS: PROPOFOL 1,000 MG/100 ML BOTTLE IV SCH (11:36)
== END 2018-04-21 12:37 | DRG 870 ==
LOC: EDBD → EDUNIT# → N.ED 10:00 → N.EDINP 11:34 → SUATTDRO 11:34 → N.CC 12:30 → N.3E 04-14 10:35 → N.CC 04-14 10:51
PROVIDERS: ADMIT Internal Medicine; ATTEND Internal Medicine